=== PATIENT | female | born 1985 | race Two or more races ===

== ENCOUNTER 2016-08-06 22:43 | Emergency (ER) | payer SELFPAY ==
[~2016-08-06 22:43] MED LIST: ALBUTEROL17 GM INH; NO MEDICATIONS; NORCO 5/325 TAB1 TAB PO
== END 2016-08-06 23:36 | disposition home or self-care (01) ==
LOC: SED 22:43
DX: J30.2 Other seasonal allergic rhinitis (principal)
CPT/HCPCS: 99282